=== PATIENT | male | born 2000 | race Caucasian/White ===

== ENCOUNTER → 2020-05-23 14:21 | Outpatient (CLI) | payer BC, SELFPAY | PROVIDERS: PCP Family Medicine; Visit Provider Family Medicine | DX: Z20.822 Contact with and (suspected) exposure to COVID-19 (principal) | CPT/HCPCS: U0003 ==

== ENCOUNTER 2023-07-03 12:52 | Emergency (ER) | payer BC, SELFPAY ==
[2023-07-03 12:54] VITALS: BP 140/90; PULSE 84; RESP 13; TEMP 36.7; O2SAT 100; BMI 26.6
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
--- NOTE | 2023-07-03 13:00 | XR_ITS ---
PROCEDURE INFORMATION: Exam: XR Left Ribs with PA Chest Exam date and time: 07/03/2023 1:17 PM Age: 23 years old Clinical indication: Other: Left sided rib pain; Additional info: Left thoracic pain after fall TECHNIQUE: Imaging protocol: Radiologic exam of the left ribs with PA chest. Views: 3 views COMPARISON: No relevant prior studies available. FINDINGS: Lungs: Unremarkable. No consolidation. Pleural spaces: Unremarkable. No pleural effusion. No pneumothorax. Heart/Mediastinum: Unremarkable. No cardiomegaly. Bones/joints: Unremarkable. IMPRESSION: No acute findings.
[2023-07-03] MEDS: KETOROLAC 30MG/ML VIAL 15 MG IV (13:24)
[2023-07-03 14:43] VITALS: BP 134/82; PULSE 77; RESP 20; TEMP 36.6; O2SAT 98
== END 2023-07-03 14:44 | disposition home or self-care (01) ==
PROVIDERS: Emergency Provider Emergency Medicine; PCP Family Medicine
DX: R07.1 Chest pain on breathing (principal); S29.9XXA Unspecified injury of thorax, initial encounter; W22.8XXA Striking against or struck by other objects, initial encounter; F17.210 Nicotine dependence, cigarettes, uncomplicated
CPT/HCPCS: 71101; 96374; 99284